=== PATIENT | male | born 1945 | race Caucasian/White ===

== ENCOUNTER → 2017-07-12 | Outpatient (CLI) | payer OTHER ==
[~2017-07-12] MED LIST: ASPIRIN81 M2 PO; ATORVASTATIN CA80 MG PO; FLOMAX0.4 MG PO; LISINOPRIL20 MG PO; METOPROLOL TART25 MG PO; XANAX0.25 MG PO
== END | disposition home or self-care (01) ==
LOC: RAD 09:26
DX: I71.2 Thoracic aortic aneurysm, without rupture (principal); I51.7 Cardiomegaly; E78.2 Mixed hyperlipidemia; R94.30 Abnormal result of cardiovascular function study, unspecified; Z87.891 Personal history of nicotine dependence; Z85.820 Personal history of malignant melanoma of skin
CPT/HCPCS: 71275

== ENCOUNTER 2017-07-18 07:27 | Day surgery (SDC) | payer OTHER ==
[~2017-07-18] VITALS: Ht 182.9 cm; Wt 86.0 kg
== END 2017-07-18 15:00 | disposition home or self-care (01) ==
LOC: CATH 07:27
DX: I25.10 Atherosclerotic heart disease of native coronary artery without angina pectoris (principal); I71.2 Thoracic aortic aneurysm, without rupture; I34.0 Nonrheumatic mitral (valve) insufficiency; I10 Essential (primary) hypertension; E78.2 Mixed hyperlipidemia; Z87.891 Personal history of nicotine dependence; Z79.82 Long term (current) use of aspirin
CPT/HCPCS: C1769; C1887; J1200; J1644; J2250